=== PATIENT | female | born 1945 | race Caucasian/White ===

== ENCOUNTER 2023-04-08 08:45 | Emergency (ER) | payer MEDICARE, SELFPAY ==
[2023-04-08 08:56] VITALS: BP 123/66; PULSE 104; O2SAT 99
[2023-04-08 09:00] VITALS: PULSE 98; O2SAT 99
[2023-04-08 09:09] VITALS: BP 123/66; PULSE 90; RESP 16; TEMP 36.9; O2SAT 100; BMI 24.0
[2023-04-08] MEDS: ONDANSETRON 4 MG/2 ML INJ IV (09:27)
[2023-04-08] MEDS: SODIUM CHLORIDE 0.9% 1,000 ML 1000 ML IV ×2 (09:27→09:49)
[2023-04-08 09:30] VITALS: PULSE 93; O2SAT 90
[2023-04-08 09:44] LABS: Alanine Aminotransferase 27 IU/L (<35); Albumin 4.5 g/dL (3.5-5.0); Albumin Globulin Ratio 1.5 (1.0-2.8); Alkaline Phosphatase 65 U/L (38-126); Aspartate Aminotransferase 36 IU/L (14-36); Bilirubin Total 0.7 mg/dL (0.2-1.3); Blood Urea Nitrogen 18 mg/dL (7-17); Calcium 8.7 mg/dL (8.4-10.2); Carbon Dioxide 25 mmol/L (22-32); Chloride 102 mmol/L (98-107); Estimated Glomerular Filt Rate > 60 mL/min (>60); Globulin 3.1 g/dL (1.7-4.1); Glucose 129 mg/dL (80-110); HEMOLYSIS 19 (0-50); Lipase 47 U/L (23-300); Potassium 3.8 mmol/L (3.4-5.1); Sodium 137 mmol/L (137-145); Total Protein 7.6 g/dL (6.3-8.2)
[2023-04-08 10:00] VITALS: PULSE 93; O2SAT 92
--- NOTE | 2023-04-08 10:12 | ED_ITS ---
HPI - Nausea/Vomiting/Diarrhea General Chief complaint: Nausea/Vomiting/Diarrhea Stated complaint: V/abd cramps/fainted T-1 Time Seen by Provider: 04/08/23 09:28 History of Present Illness HPI Narrative: Patient healthy 78-year-old female history of hypothyroid presenting today with nausea vomiting. She reports that started fairly suddenly around 8:00 p.m. last night. Vomiting throughout the night. Some mild abdominal cramping no significant diarrhea. She denies any chest pain dizziness or lightheadedness. She says she really was not feeling very well. She is feeling a bit better now. No one else is sick at home no fever or chills. Related Data Previous Rx's Medication Instructions Recorded ondansetron 4 mg disintegrating 4 mg PO Q8H PRN nausea and 04/08/23 tablet vomiting #10 tabs Allergies Allergy/AdvReac Type Severity Reaction Status Date / Time codeine AdvReac Nausea Verified 04/08/23 09:20 Review of Systems Review of Systems ROS Unobtainable: All systems reviewed & are unremarkable except as noted in HPI and below Exam Initial Vital Signs Initial Vital Signs: Vital Signs Pulse Rate 104 H 04/08/23 08:56 Blood Pressure 123/66 04/08/23 08:56 Pulse Oximetry 99 04/08/23 08:56 GENERAL: Alert pleasant well-appearing 78-year-old and in no acute distress. HEENT: Head atraumatic,EOMI, pupils reactive, face symmetric, moist mucous membranes CARDIOVASCULAR: Regular rate and rhythm without murmurs, rubs or gallops. RESPIRATORY: Breath sounds equal bilaterally, no wheezes rales or rhonchi. ABDOMEN: Soft, nontender. Normoactive bowel sounds all 4 quadrants. No guarding or rebound. EXTREMITIES: Normal range of motion, no clubbing or edema. Neurovascularly intact NEUROLOGICAL: Alert and oriented x4.Normal gait and speech. SKIN: Warm, dry, no laceration, no petechiae, no rashes or lesions. Course Orders Ordered: ED Orders 04/08/23 10:54 EKG-12 Lead Stat Discontinued Medications Sodium Chloride (Normal Saline 0.9%) 1,000 mls @ 1,000 mls/hr IV BOLUS ONE Stop: 04/08/23 10:18 Last Infusion: 04/08/23 09:41 Dose: 0 mls/hr Documented By: Admin: 04/08/23 09:27 Dose: 1,000 mls/hr Documented By: DEDE Sodium Chloride (Normal Saline 0.9%) 1,000 mls @ 1,000 mls/hr IV BOLUS ONE Stop: 04/08/23 10:31 Last Infusion: 04/08/23 10:50 Dose: 0 mls/hr Documented By: Admin: 04/08/23 09:49 Dose: 1,000 mls/hr Documented By: DEDE Ondansetron HCl (Ondansetron 4 Mg/2 Ml Inj) 4 mg IV NOW ONE Stop: 04/08/23 09:20 Last Admin: 04/08/23 09:27 Dose: 4 mg Documented By: DEDE Pantoprazole Sodium (Pantoprazole 40 Mg Vial) 40 mg IV NOW ONE Stop: 04/08/23 09:33 Last Admin: 04/08/23 09:44 Dose: Not Given Documented By: DEDE Vital Signs Vital signs: Vital Signs - 8 hr 04/08/23 09:09 04/08/23 08:56 04/08/23 08:56 Temperature 98.5 F Pulse Rate 90 104 H Respiratory Rate 16 Blood Pressure 123/66 123/66 Pulse Oximetry 100 99 Oxygen Delivery Method Room Air 04/08/23 09:00 04/08/23 09:30 04/08/23 10:00 Temperature Pulse Rate 98 H 93 H 93 H Respiratory Rate Blood Pressure Pulse Oximetry 99 90 L 92 Oxygen Delivery Method 04/08/23 10:30 Temperature Pulse Rate 86 Respiratory Rate Blood Pressure Pulse Oximetry 98 Oxygen Delivery Method MDM - Nausea/Vomiting/Diarrhea Lab Data 04/08/23 09:00 04/08/23 09:00 Labs: Lab Results 04/08/23 04/08/23 Range/Units 09:00 09:00 WBC 10.3 (4.5-11.0) X10^3/uL RBC 4.63 (4.0-5.2) X10^6/uL Hgb 14.1 (12.0-16.0) g/dL Hct 41.5 (36-46) % MCV 89.6 (80-100) fL MCH 30.4 (26-34) PG MCHC 33.9 (30-36) % RDW 14.0 (11.6-14.8) % Plt Count 236 (150-400) X10^3/uL Neut % (Auto) Not Reportable Lymph % (Auto) Not Reportable [place] % (Auto) Not Reportable Eos % (Auto) Not Reportable Baso % (Auto) Not Reportable Lymph # (Auto) Not Reportable [place] # (Auto) Not Reportable Baso # (Auto) Not Reportable Total Counted 100 Seg Neutrophils % 71.0 H (38-70) % Band Neutrophils % 23.0 H (3-7) % Lymphocytes % (Manual) 4.0 L (25-45) % Monocytes % (Manual) 2.0 (2-11) % Neutrophils # (Manual) 9682 H (6921-2799) /uL RBC Morphology Normal morphology Sodium 137 (137-145) mmol/L Potassium 3.8 (3.4-5.1) mmol/L Chloride 102 (98-107) mmol/L Carbon Dioxide 25 (22-32) mmol/L BUN 18 H (7-17) mg/dL Creatinine 0.58 (0.52-1.04) mg/dL Estimated GFR > 60 (>60) mL/min BUN/Creatinine Ratio 31.0 H (6-22) Glucose 129 H (80-110) mg/dL Calcium 8.7 (8.4-10.2) mg/dL Total Bilirubin 0.7 (0.2-1.3) mg/dL AST 36 (14-36) IU/L ALT 27 (<35) IU/L Alkaline Phosphatase 65 (38-126) U/L Total Protein 7.6 (6.3-8.2) g/dL Albumin 4.5 (3.5-5.0) g/dL Globulin 3.1 (1.7-4.1) g/dL Albumin/Globulin Ratio 1.5 (1.0-2.8) Lipase 47 (23-300) U/L Urine Dip Bedside Urine Glucose Negative Bedside Urine Bilirubin - Negative Bedside Urine Ketone - Negative Urine Specific [place] 1.005 Bedside Urine Occult Blood - Negative Bedside Urine pH 7.0 Bedside Urine Protein - Negative Bedside Urine Urobilinogen - Negative Bedside Urine Nitrite - Negative Bedside Urine Leukocytes - Negative Esterase ECG Data Interpretation: Sinus rhythm rate 85 ID interval 176 QRS [address] changes or T-wave inversion MDM Narrative Medical decision making narrative: Patient 78-year-old female presenting today with nausea vomiting. Blood work is overall reassuring without leukocytosis or electrolyte abnormality or KIMBER[place]. Symptoms are consistent with a gastroenteritis. Urinalysis is negative. Feeling much better after IV fluids and Zofran. Abdomen remains soft nontender at this time I see no need for imaging symptoms are consistent with a gastroent eritis. Tolerating oral fluid. Discussed oral rehydration technique with her and when to return to the ED. Discharge Plan Departure Patient Disposition: Home Clinical Impression: Gastroenteritis Instructions: DI for Viral Gastroenteritis -- Adult Activity Restrictions/Additional Instructions: *You have been diagnosed with gastroenteritis *What to do: Increase fluids as tolerated recommend Pedialyte Gatorade Jell-O broth, *Continue to take medications as directed Zofran 4 mg every 8 hours if needed for nausea vomiting Tylenol or Motrin as directed if needed for pain *Follow up with your primary care provider in 2-3 days or call [phone] *Return to ER if you should have persistent vomiting despite nausea medication or any new, worsening or concerning symptoms Prescriptions: New ondansetron 4 mg tablet,disintegrating 4 mg PO Q8H PRN (Reason: nausea and vomiting) Qty: 10 0RF Referrals: Miscellaneous,Doctor, [Primary Care Provider] - Stand Alone Forms: Patient Portal/API
[2023-04-08 10:20] LABS: Hematocrit 41.5 % (36-46); Hemoglobin 14.1 g/dL (12.0-16.0); Mean Corpuscular HGB Conc 33.9 % (30-36); Mean Corpuscular Hemoglobin 30.4 PG (26-34); Mean Corpuscular Volume 89.6 fL (80-100); Platelet Count 236 X10^3/uL (150-400); Red Blood Cell Count 4.63 X10^6/uL (4.0-5.2); White Blood Cell Count 10.3 X10^3/uL (4.5-11.0)
[2023-04-08 10:22] LABS: Add Manual Diff / Slide Review YES
[2023-04-08 10:30] VITALS: PULSE 86; O2SAT 98
[2023-04-08 10:34] LABS: Neutrophils Absolute Manual 9682 /uL (3000-5900); Total Cells Counted 100
[2023-04-08 10:36] LABS: RBC Morphology Normal Morphology
== END 2023-04-08 11:26 | disposition home or self-care (01) ==
PROVIDERS: Emergency Provider Emergency Medicine
DX: K52.9 Noninfective gastroenteritis and colitis, unspecified (principal); R10.9 Unspecified abdominal pain
CPT/HCPCS: 36415; 80053; 81003; 83690; 85007; 85025; 93005; 96361; 96374; 99284; J2405